=== PATIENT | female | born 1960 | race Caucasian/White ===

== ENCOUNTER 2022-07-05 06:58 | Day surgery (SDC) | payer BC ==
[2022-06-27 14:48] LABS: CLARITY,URINE CLEAR (Clear); GLUCOSE, URINE NEGATIVE (Neg); KETONES,URINE NEGATIVE (Neg); LEUKOCYTE ESTERASE ,URINE SMALL (Neg); NITRITES, URINE NEGATIVE (Neg); OCCULT BLOOD,URINE NEGATIVE (Neg); PROTEIN,URINE NEGATIVE (Neg); UROBILINOGEN,URINE 0.2 E.U/dL (0.2-1.0)
[2022-06-27 14:56] LABS: BASOPHILS # (AUTO) 0.1 X10'3 (0-0.2); BASOPHILS % (AUTO) 1.3 % (0-1); EOSINOPHILS # (AUTO) 0.1 X10'3 (0-0.9); EOSINOPHILS % (AUTO) 1.9 % (0-6); LYMPHOCYTES # (AUTO) 1.6 X10'3 (1.1-4.8); LYMPHOCYTES % (AUTO) 34.7 % (21-51); MEAN CORPUSCULAR HEMOGLOBIN 32.3 PG (27.0-31.0); MEAN CORPUSCULAR HGB CONC 34.3 g/dL (33.0-36.5); MONOCYTES # (AUTO) 0.4 X10'3 (0-0.9); MONOCYTES % (AUTO) 9.1 % (2-12); NEUTROPHILS # (AUTO) 2.5 X10'3 (1.8-7.7); PRE OP HEMATOCRIT 42.4 % (35.0-45.0); PRE OP HEMOGLOBIN 14.6 g/dL (12.0-16.0); PRE OP PLATELET COUNT 225 X10'3 (140-440); RED BLOOD COUNT 4.51 X10'6 (4.20-5.60); RED CELL DISTRIBUTION WIDTH 13.6 % (11.5-14.5)
[2022-06-27 14:59] LABS: COLOR,URINE STRAW (Yellow); UA COLLECTION TYPE CLN CATCH MIDSTREAM
[2022-06-27 15:04] LABS: ALBUMIN 4.1 G/DL (3.4-5.0); ALBUMIN/GLOBULIN RATIO 1.1 (1.1-1.5); ALKALINE PHOSPHATASE 74 IU/L (46-116); BLOOD UREA NITROGEN 7 MG/DL (7-18); BUN/CREATININE RATIO 7.6 (10.0-20.0); CALCIUM 9.5 MG/DL (8.5-10.1); CHLORIDE 103 MMOL/L (99-107); CREATININE 0.92 MG/DL (0.40-0.90); PRE OP ALT 30 U/L (30-65); PRE OP ANION GAP 7 (8-16); PRE OP AST 31 U/L (10-37); PRE OP BILIRUB, TOTAL 0.4 MG/DL (0.0-1.0); PRE OP GLUCOSE 98 MG/DL (70-104); PRE OP POTASSIUM 3.8 MMOL/L (3.4-5.1); PRE OP SODIUM 138 MMOL/L (135-145); TOTAL CARBON DIOXIDE 27.9 MMOL/L (24-32); TOTAL PROTEIN 7.8 G/DL (6.4-8.2); eGFR 62 ML/MIN
[2022-06-27 15:05] LABS: BACTERIA,URINE 2+ /HPF (Neg); MUCUS STRANDS NONE SEEN /LPF (Neg); RBC,URINE NONE SEEN /HPF (0-2); SQUAMOUS EPITHELIAL CELL,UR MANY /LPF (FEW)
[2022-07-05] VITALS (17 sets, daily range): BP systolic 121–155; BP diastolic 65–85
[~2022-07-05] VITALS: Ht 157.5 cm; Wt 89.8 kg
[~2022-07-05 06:58] MED LIST: ATEN25TA PO; OMEP40CA21 PO; VALS1TAB80 PO; cefazolin 2gm/D5W 100mL 100 ML IV ONE; famotidine 20mg tablet PO ONE; ringers solution, lacted 1,000 ML IV SCH
[2022-07-05] MEDS ORDERED: BUPIVAcaine/PF 2.5 mg/ml (0.25%) 30ml vial ONE ×2 (07:11→12:12)
[2022-07-05] MEDS ORDERED: morphine 4 MG/ML inj SYRINge IV PRN (10:15)
[2022-07-05] MEDS ORDERED: meperidine/PF 25mg/ml syringe IV PRN ×3 (10:15)
[2022-07-05] MEDS ORDERED: proCHLORperazine 10 MG/2 ml inj IV PRN (10:15)
[2022-07-05] MEDS ORDERED: ondansetron/PF 4mg/2ml inj IV PRN (10:15)
[2022-07-05] MEDS ORDERED: ringers solution, lacted 1,000 ML IV SCH (10:15)
[2022-07-05] MEDS ORDERED: morphine 2 MG/ML inj. syringe IV PRN (10:15)
[2022-07-05] MEDS ORDERED: LIDOcaine 2% (20mg/ml) 5ml vial ONE (10:54)
[2022-07-05] MEDS ORDERED: sevoflurane 250ml liquid IH ONE (10:54)
[2022-07-05] MEDS ORDERED: midazolam 1 mg/ML 2ml injection ONE (10:56)
[2022-07-05] MEDS ORDERED: propofol inj 20 ML IV ONE (10:56)
[2022-07-05] MEDS ORDERED: fentaNYL/PF 50MCG/1 ML 2ML syringe ONE (10:56)
[2022-07-05] MEDS ORDERED: rocuronium 10mg/ml inj IV ONE (10:56)
[2022-07-05] MEDS ORDERED: BUPIVAcaine/PF 2.5 mg/ml (0.25%) 30ml vial IJ ONE (11:31)
[2022-07-05] MEDS ORDERED: acetaminophen 1,000mg/100ml IV 100 ML IV ONE (11:53)
[2022-07-05] MEDS ORDERED: dexamethasone sod phosphate 4mg/ml inj. ONE (11:53)
[2022-07-05] MEDS ORDERED: ondansetron/PF 4mg/2ml inj ONE (12:05)
[2022-07-05] MEDS ORDERED: BUPIVAcaine/PF 2.5mg/ml (0.25%) 10ml vial ONE (12:12)
[2022-07-05] MEDS ORDERED: BUPIVACAINE liposomal/PF 13.3 MG/ML vial IM ONE (12:12)
[2022-07-05] MEDS ORDERED: sugammadex 200mg/2ml injection IV ONE (12:29)
--- NOTE | 2022-07-05 12:41 | NUR ---
Received from OR via , accompanied by Anesthesiologist MARY AND OR NURSE and report given by Anesthesiolgist. PT IS DROWSY YET ABLE TO RESPOND TO VERBAL COMMANDS. PT C/O PAIN A 10; MED GIVEN PER MAY. 2 LAP SITES TO ABDOMEN; CDI WITH DERMABOND. VSS Addendum: 07/05/22 at 1322 by Melisa Jain RN Amended: Links added.
--- NOTE | 2022-07-05 15:31 | NUR ---
ABLE TO SAFELY AMBULATE AND TRANSFER SELF. IV TAKEN OUT WITHOUT ANY COMPLICATIONS. ALL DISCHARGE INSTRUCTIONS COVERED WITH PATIENT AND ALL QUESTIONS ANSWERED. PATIENT TAKEN OUT VIA WHEELCHAIR TO PERSONAL VEHICLE WHERE FAMILY/FRIEND DROVE PATIENT HOME. Addendum: 07/05/22 at 1550 by Melisa Jain RN Amended: Links added.
--- NOTE | 2022-07-06 14:52 | NUR ---
Was administered 25 mg of demerol that wasn't scanned by Jerica Jain RN.
--- NOTE | 2022-07-06 14:58 | NUR ---
Was administered 25 mg of Demerol by naina Jain 07/05/22 that was not scanned.
== END 2022-07-05 15:31 | disposition home or self-care (01) ==
LOC: PAS 06:58
PROVIDERS: ATTEND Surgery
DX: K43.9 Ventral hernia without obstruction or gangrene (principal); I10 Essential (primary) hypertension; K21.9 Gastro-esophageal reflux disease without esophagitis; E66.9 Obesity, unspecified; Z68.36 Body mass index [BMI] 36.0-36.9, adult; E03.9 Hypothyroidism, unspecified; Z86.32 Personal history of gestational diabetes; Z72.89 Other problems related to lifestyle; Z79.899 Other long term (current) drug therapy; Z90.710 Acquired absence of both cervix and uterus; Z98.890 Other specified postprocedural states; Z83.3 Family history of diabetes mellitus; Z80.49 Family history of malignant neoplasm of other genital organs
CPT/HCPCS: 36415; 49593; 64488; 80053; 81001; 82948; 85025; 93005; C1713; C1781; C9290; J0131; J0690; J1100; J2175; J2250; J2270; J2405; J2704; J3010; J3490; J7030; J7120; Z7506; Z7508; Z7512; A4215; A4618; A7000